=== PATIENT | male | born 1955 | race Caucasian/White ===

== ENCOUNTER 2017-04-07 07:48 | Day surgery (SDC) | payer MEDICARE ==
[~2017-04-07 07:48] MED LIST: PREMYELOGRAM MEDICATION REVIEW 1 EACH MISC PO NR
[2017-04-07] MEDS ORDERED: DIAZEPAM 5 MG TAB PO STA (08:10)
[2017-04-07 08:23] VITALS: RESP 20; TEMP 97.8
[2017-04-07 08:29] LABS: Mean Platelet Volume 7.2; Platelet Count 273 k/uL (150-450)
[2017-04-07 08:43] LABS: Prothrombin Time 9.8 sec (9.0-12.0)
--- NOTE | 2017-04-07 10:57 | CT ---
EXAMINATION TYPE: CT cervical spine w con, [place] myelogram cervical DATE OF EXAM: 04/07/2017 COMPARISON: NONE HISTORY: Post myelogram CT of the cervical spine. Arthrodesis status CT DLP: 485.10 mGycm Myelogram: Informed consent was obtained and all the patient's questions were answered. Standard ster ile technique was utilized as well as appropriate local anesthesia utilizing lidocaine. Under fluoros copic guidance the L2-3 level was localized and spinal needle was introduced into the thecal sac. Uma roximately 15 cc of Omnipaque 240 was injected. The table was tilted and contrast was visualized to t he cervical level. The patient was then sent to CT for CT myelography. Post myelography CT of the cervical spine: CONTRAST: Performed with IV Contrast, patient injected with 15 mL of Omnipaque 240. Post myelogram CT of the ce rvical spine. Post myelography CT of the cervical spine was performed from C1 through C7-T1. Axial coronal and sag ittal images are submitted. C2-3: Mild degenerative disc space narrowing. Mild left paracentral disc bulge. Partial encapsulating spur resulting in hard disc mildly effaces the left portion of the thecal sac. There is evidence of moderate left foraminal encroachment at this level. No evidence for central stenosis. C3-4: Mild degenerative disc space narrowing. Posterocentral disc bulge and partial encapsulating spu r resulting in disc endplate complex. Mild effacement of the ventral thecal sac. No evidence for isidro iation or central stenosis. Foramina are patent bilaterally C4-5: Moderate degenerative disc space narrowing. Posterior disc bulge with partial encapsulating spu r greatest posterior centrally and to the left. Left lateral recess stenosis. Moderate left-sided for aminal encroachment. No central stenosis. C5-C6: Postoperative changes of anterior cervical discectomy and fusion. Anterior fixation plate is in place. Intervertebral body spacers are intact. Streak artifact limits evaluation. No evidence for recurrent or residual disease. No central stenosis or disc herniation. C6-C7: Postoperative changes of anterior cervical discectomy and fusion. Anterior fixation plate is i n place. Intervertebral body spacers are intact. Streak artifact limits evaluation. No evidence for r ecurrent or residual disease. No central stenosis or disc herniation. C7-T1: Within normal limits. There is no evidence for fracture. Normal alignment is present. Minimal ventral spondylosis. Rever josselin of the normal cervical lordosis centered at C4-5. Chronic maxillary sinusitis. IMPRESSION: 1. Degenerative disc disease with disc bulging and partial encapsulating spur at several levels resu lting in disc endplate complex. Left foraminal encroachment noted at C2-3 and C4-5. 2. Postoperative changes of ACDF as discussed without evidence for recurrent or residual disease. 3. Reversal of normal cervical lordosis.
[2017-04-07 11:30] VITALS: BP 126/67; PULSE 58
== END 2017-04-07 11:40 | disposition home or self-care (01) ==
LOC: RADPROMAIN 07:48
PROVIDERS: ATTEND Specialist
DX: M50.01 Cervical disc disorder with myelopathy, high cervical region (principal); M50.31 Other cervical disc degeneration, high cervical region; M43.8X2 Other specified deforming dorsopathies, cervical region; R41.3 Other amnesia; Z79.82 Long term (current) use of aspirin; Z79.899 Other long term (current) drug therapy; Z79.01 Long term (current) use of anticoagulants; Z88.5 Allergy status to narcotic agent
CPT/HCPCS: 85049; 85610; 62284; 36415; 62302; 72126; Q9966